=== PATIENT | female | born 1935 | race Caucasian/White ===

== ENCOUNTER → 2023-02-21 | Outpatient (CLI) | payer MEDICARE, BC ==
--- NOTE | 2023-02-21 14:48 | MM ---
Reason for Exam: Clinical finding. Baseline mammogram. Indicated Problems: Lump or thickening of the left side (size 70) for 2 Year(s). Patient History: Menarche at age 10. First Full-Term at age 17. Postmenopausal. Prior Study Comparison: Patient's first Mammogram. Tissue Density: The breast tissue is heterogeneously dense. This may lower the sensitivity of mammography. Findings: Analyzed By CAD. Large area of heterogeneous density measuring nearly 6.5 cm craniocaudal by 4.5 cm AP by 4.3 cm wide. This is a poorly defined area of increased density with overlying palpable marker centered along the superior aspect of the breast. Some stranding is noted in the axillary region. Vascular calcifications on both sides. Overall Assessment: Incomplete: need additional imaging evaluation, BI-RAD 0 Management: Diagnostic Breast Ultrasound of the left breast. Electronically signed and approved by: Precoius Vega M.D. Radiologist
--- NOTE | 2023-02-21 15:21 | USB ---
Reason for Exam: Clinical finding. Patient History: Menarche at age 10. First Full-Term at age 17. Postmenopausal. Technique: Method: Whole Breast Handheld. Findings: The whole breast of the left breast, the axilla of the left breast and the retroareolar of the left breast were scanned. A complete US of all four quadrants of the breast common axilla, and retro-areolar region were reviewed. At the 12:00 position, there is a large, poorly defined heterogeneous mass with echogenic halo measuring up to 3.3 x 3.1 x 2.0 cm. Tissue sampling is recommended. At the 7:00 position, 4 cm from the nipple, there is an indeterminate heterogeneous hypoechoic lesion measuring 5 x 5 x 4 mm. Tissue sampling is recommended to exclude multicentric disease. No other solid or cystic lesion or axillary lymphadenopathy. Overall Assessment: Highly suggestive of malignancy, BI-RAD 5 Management: Ultrasound Core Biopsy of the left breast. 2 site biopsy, dominant 12:00 mass and small 5 mm indeterminate 7:00 lesion to exclude multicentric disease. No axillary lymphadenopathy identified. Results were given to the patient verbally at the time of exam. Electronically signed and approved by: Precious Vega M.D. Radiologist
== END | disposition home or self-care (01) ==
LOC: RADMAMWWP 14:20
PROVIDERS: ATTEND Family Medicine
DX: N63.20 Unspecified lump in the left breast, unspecified quadrant (principal); R92.333 Mammographic heterogeneous density, bilateral breasts; R92.1 Mammographic calcification found on diagnostic imaging of breast; Z78.0 Asymptomatic menopausal state
CPT/HCPCS: 77066; 76641; G0279; 77062

== ENCOUNTER → 2023-03-09 | Day surgery (SDC) | payer MEDICARE, BC ==
--- NOTE | 2023-03-14 13:57 | MM ---
Reason for Exam: Post Procedure Mammogram. Last screening mammogram was performed less than 1 month ago. Patient History: Menarche at age 10. First Full-Term at age 17. Postmenopausal. Prior Study Comparison: 02/21/2023 Bilateral MG 3D diag mammo w/cad [facility], [facility]. Tissue Density: Left: The breast tissue is heterogeneously dense. This may lower the sensitivity of mammography. Pathology Description: Location: 7 o'clock. Marker Left Behind. Needle Type: Celero Cores: 3 Gauge: 12 Pathology Description: Location: 12 o'clock. Marker Left Behind. Needle Type: Celero Cores: 4 Gauge: 12 The 2 masses within the left breast at 12:00 and one at 7:00 in questionwere targeted by the undersigned. Procedure was performed by the undersigned. Informed consent was obtained and all of the patients questions were answered. The standard sterile technique was utilized and appropriate local anesthesia was obtained with 1% lidocaine. Mammotome probe was advanced and multiple core samples were obtained and sent to pathology for interpretation. Microclip marker was deployed at the sites of biopsy. Post procedural mammogram demonstrates appropriate deployment of radiopaque clip markers. The patient tolerated the procedure well and left the department in stable condition. Pathology results are pending. Impression: Successful stereotactic core biopsies left breast. Pathology Results: Result: Malignant, Invasive lobular carcinoma. A. LEFT BREAST, TWELVE O'CLOCK, 7 CM FROM NIPPLE, CORE BIOPSY: Invasive lobular carcinoma, Grade 2 (See Surgical Pathology Cancer Case Summary and Comment). B. LEFT BREAST, SEVEN O'CLOCK, 4 CM FROM NIPPLE, CORE BIOPSY: Focal lobular neoplasia representing at least atypical lobular hyperplasia (ALH) with fibrocystic change (See Surgical Pathology Cancer Case Summary and Comment). Overall Assessment: Malignant Assessment: MG diagnostic mammo LT wo CAD. - Left: Known biopsy proven malignancy, BI-RAD 6. Management: Surgical Consultation of the left breast. Electronically signed and approved by: Stevo Plascencia M.D. Radiologis
== END ==
LOC: RADUSWWP 09:55
PROVIDERS: ATTEND Surgery
DX: C50.912 Malignant neoplasm of unspecified site of left female breast (principal); N60.12 Diffuse cystic mastopathy of left breast
CPT/HCPCS: 88305; 88342; 88341; 77065; 19083; 19084; A4648

== ENCOUNTER → 2023-03-16 | Outpatient (CLI) | payer MEDICARE, BC ==
[2023-03-16 09:32] VITALS: BP 164/81; PULSE 90; RESP 15; TEMP 98.1
--- NOTE | 2023-03-16 09:53 | P.GSHP ---
History of Present Illness H&P Date: 03/16/23 Chief Complaint: left breast invasive lobular cancer Judy is an 87 year old female with a diagnosis of left breast invasive lobular cancer. She is seen in consultation for Sr. Overton. She had a bilateral mammogram on 02-05-23 which resulted in further workup of the left breast. An ultrasound of the left breast revealed a 3.3 by 3.1 cm lesion. Biopsy of the lesion was (+) for invasive lobular cancer. ER+NM+Her2-G2. THei was at the 12 OClock position. The patient has felt a lump in her breast for about 1 year. It has gotten larger. It is not painful. She has not had any surgery on her breast in the past. This was her first mammogram. She is not complaining of any recent trauma or infection in the breast. She recently moved into independent living and takes care of her 65-year-old mentally impaired daughter. Caffeine: 1 cup/day nicotine: none chocolate: weekly BCP: 1 year hormones: none Family History: mother: breast cancer in her 70's daughter: breast cancer neice: 2 breast cancer Hormonal History: menarche: 10 , breast fed: yes, age at first : 17 menopause: hysterectomy 30 years ago, done for prolapse, left ovaries; menopause at 48 Surgical history: Rib resection Mohs surgery on her back and on her leg do know what kind of cancer cyst removed from face no cancer Medical history: HTN tremors anxiety high cholesterol Social History: Nicotine: Negative Alcohol: Negative Drugs: Negative - Constitutional Constitutional: Denies chills, Denies fever - EENT Eyes: denies blurred vision, denies pain Ears: bilateral: decreased hearing, deny: tinnitus Ears, nose, mouth and throat: Denies headache, Denies sore throat - Breasts Breasts: bilateral: as per HPI - Cardiovascular Cardiovascular: Denies chest pain, Denies shortness of breath - Respiratory Respiratory: Denies cough, Denies 7 - Gastrointestinal Gastrointestinal: Denies abdominal pain, Denies diarrhea, Denies nausea, Denies vomiting - Genitourinary (Female) Genitourinary: Denies dysuria, Denies hematuria - Menstruation Menstruation: Reports postmenopausal - Musculoskeletal Musculoskeletal: Denies myalgias - Integumentary Integumentary: Denies pruritus, Denies rash - Neurological Neurological: Denies numbness, Denies weakness - Psychiatric Psychiatric: Reports anxiety, Denies depression - Endocrine Endocrine: Denies fatigue, Denies weight change - Hematologic/Lymphatic Comment: take baby aspirin - Allergic/Immunologic Allergic/Immunologic: Reports as per HPI Past Medical History Past Medical History: Cancer, Hyperlipidemia, Hypertension Additional Past Medical History / Comment(s): benign tremors. Hx of skin cancer History of Any Multi-Drug Resistant Organisms: None Reported Past Surgical History: Hysterectomy Additional Past Surgical History / Comment(s): Pilar cyst removal,skin cancer removal Past Anesthesia/Blood Transfusion Reactions: Postoperative Nausea & Vomiting (PONV) Additional Past Anesthesia/Blood Transfusion Reaction / Comment(s): wakes up slow Past Psychological History: Anxiety, Depression Smoking Status: Never smoker Past Alcohol Use History: None Reported Past Drug Use History: None Reported Medications and Allergies Home Medications Medication Instructions Recorded Confirmed Type Aspirin 81 mg PO DAILY 02/22/23 03/16/23 History Sertraline [Zoloft] 25 mg PO DAILY 02/22/23 03/16/23 History Cholecalciferol [Vitamin D3 (25 25 mcg PO DAILY 03/16/23 03/16/23 History Mcg = 1000 Iu)] Losartan Potassium 100 mg PO DAILY 03/16/23 03/16/23 History Primidone 50 mg PO HS 03/16/23 03/16/23 History Simvastatin 40 mg PO DAILY 03/16/23 03/16/23 History Allergies Allergy/AdvReac Type Severity Reaction Status Date / Time codeine AdvReac Rash/Hives Verified 03/16/23 09:11 Surgical - Exam Vital Signs Temp Pulse Resp BP Pulse Ox 98.1 F 90 15 164/81 97 03/16/23 09:17 03/16/23 09:17 03/16/23 09:17 03/16/23 09:17 03/16/23 09:17 - General no distress - Eyes normal ocular movement - Neck trachea midline - Respiratory normal respiratory effort, clear to auscultation - Cardiovascular Heart Sounds: normal: S1, S2 - Abdomen Abdomen: soft, non tender, no guarding, no rigid, no rebound - Integumentary normal turgor - Neurologic no disoriented, no combative - Musculoskeletal normal gait - Psychiatric oriented to time, oriented to person, oriented to place, speech is normal, memory intact Breast Exam: BRA: 36B Inspection: Bilateral grade 3 ptosis, fullness left breast 12 o'clock position and left axilla Palpation: Right breast: Multi positional exam fibrocystic changes no discrete dominant masses or nodules of concern Right axilla: No adenopathy of concern Left breast: Multi positional exam fullness approximately 5 x 3 cm 12 o'clock position left breast, left axillary area positive mass approximately 3 x 2 cm Left axilla: Probable axillary adenopathy left axillary mass as described above Results Mammogram and ultrasound reviewed with Dr. Colvin Assessment and Plan Assessment: Impression: Left breast invasive lobular carcinoma/probable axillary involvement Plan: Discussion with patient and her family Presentation of case at tumor board Left axillary ultrasound with biopsy CC: Dr. Overton
== END ==
LOC: WWCWWP 08:53
PROVIDERS: ATTEND Surgery
DX: C50.912 Malignant neoplasm of unspecified site of left female breast (principal); E78.00 Pure hypercholesterolemia, unspecified; F41.9 Anxiety disorder, unspecified; F32.A Depression, unspecified; I10 Essential (primary) hypertension; Z85.828 Personal history of other malignant neoplasm of skin; Z86.011 Personal history of benign neoplasm of the brain; Z80.3 Family history of malignant neoplasm of breast; Z79.899 Other long term (current) drug therapy; Z17.0 Estrogen receptor positive status [ER+]; Z88.5 Allergy status to narcotic agent; Z79.82 Long term (current) use of aspirin

== ENCOUNTER → 2023-03-30 | Outpatient (CLI) | payer MEDICARE, BC ==
--- NOTE | 2023-04-01 11:18 | PE ---
EXAMINATION TYPE: PET CT fusion skull to thigh DATE OF EXAM: 03/30/2023 CLINICAL INDICATION:Female, 87 years old with history of C50.612 Breast ca; TECHNIQUE: Following the intravenous administration of 9.67 mCi of F-18 FDG, whole body images are performed from the skull base to the midthigh. Images are reviewed on the computer in the coronal, a xial, and sagittal planes. Reconstructed rotating images are created on independent workstation and reviewed on the computer. A non-contrast CT is performed in conjunction with the PET scan. Glucose level 76 mg/dL CT DLP: 307.99 mGycm, Automated exposure control for dose reduction was used. COMPARISON: CT None, PET/CT None, mammography 03/09/2023, ultrasound 03/09/2023. FINDINGS: Mediastinal SUV mean is 2.0. Hepatic parenchyma SUV mean is 2.4. SKULL BASE AND NECK: No suspicious radiotracer activity. CHEST, MEDIASTINUM, AND HILAR REGION: * Hazy soft tissue with uptake within the left breast max SUV 2.2. ABDOMEN AND PELVIS: No suspicious radiotracer activity. MUSCULOSKELETAL STRUCTURES: * Subtle uptake within the left aspect of the sternum max SUV 2.0. OTHER CT: Left thyroid nodule with peripheral calcification. Heart is mildly enlarged for size. Ather osclerosis of the arterial vasculature including the coronary arteries. Mild aortic valve leaflet jefferson cifications. Scattered colonic diverticula. High density probable gallstones in the gallbladder lumen . Pelvic floor prolapse extending below the pubococcygeal line. IMPRESSION: Subtle uptake within the left breast possibly relating to recent biopsy. There is subtle uptake withi n the sternum with mild sclerosis on CT. Early metastatic disease not entirely excluded. No evidence for FDG avid lymph nodes or other evidence of metastatic disease at this time.
== END | disposition home or self-care (01) ==
LOC: RADPETMAIN 14:24
PROVIDERS: ATTEND Surgery
DX: C50.612 Malignant neoplasm of axillary tail of left female breast (principal)
CPT/HCPCS: 78815; A9552

== ENCOUNTER → 2023-04-19 | Day surgery (SDC) | payer MEDICARE, BC | LOC: RADUSWWP 12:38 | PROVIDERS: ATTEND Surgery | DX: C50.912 Malignant neoplasm of unspecified site of left female breast (principal); Z85.3 Personal history of malignant neoplasm of breast | CPT/HCPCS: 19083; A4648; 88305; 88341; 88342 ==

== ENCOUNTER 2023-05-04 10:51 | Emergency (ER) | payer MEDICARE, BC ==
--- NOTE | 2023-05-04 11:09 | ED ---
General Adult HPI - General Chief complaint: Recheck/Abnormal Lab/Rx Stated complaint: HTN Time Seen by Provider: 05/04/23 10:55 Source: patient, EMS, RN notes reviewed, old records reviewed Mode of arrival: EMS Limitations: no limitations - History of Present Illness Initial comments: Patient is a pleasant 87-year-old female present to the emergency department with concerns for blood pressure. Patient was at her doctor's office today getting results and a breast biopsy. Patient was informed she will need further treatment. Patient admits to being upset regarding this. Blood pressure was high and patient was advised to come the emergency department. Patient states otherwise she feels fine. Patient does have history of hypertension and last took her medication last night which is normal. - Related Data Home Medications Medication Instructions Recorded Confirmed Aspirin 81 mg PO HS 02/22/23 05/04/23 Sertraline [Zoloft] 25 mg PO HS 02/22/23 05/04/23 Cholecalciferol [Vitamin D3 (25 50 mcg PO HS 03/16/23 05/04/23 Mcg = 1000 Iu)] Losartan Potassium 100 mg PO HS 03/16/23 05/04/23 Primidone 100 mg PO HS 03/16/23 05/04/23 Simvastatin 40 mg PO HS 03/16/23 05/04/23 Fritz/D3/Mag11/Zinc/Infection Preventionist/Ethan/Bor 1 tab PO HS 05/04/23 05/04/23 [Caltrate 600+D Plus Tablet] Letrozole [Femara] 2.5 mg PO DAILY 05/04/23 05/04/23 Previous Rx's Medication Instructions Recorded Azithromycin [Zithromax Z Pack] 250 mg PO DAILY #6 tab 05/04/23 Allergies Allergy/AdvReac Type Severity Reaction Status Date / Time codeine Allergy Rash/Hives Verified 05/04/23 11:51 lisinopril AdvReac Cough Verified 05/04/23 11:51 Review of Systems ROS Statement: Those systems with pertinent positive or pertinent negative responses have been documented in the HPI. ROS Other: All systems not noted in ROS Statement are negative. Constitutional: Denies: fever Eyes: Denies: eye pain ENT: Denies: ear pain Respiratory: Denies: cough Cardiovascular: Denies: chest pain Endocrine: Denies: fatigue Gastrointestinal: Denies: abdominal pain Genitourinary: Denies: urgency Psychiatric: Reports: anxiety Past Medical History Past Medical History: Cancer, Hyperlipidemia, Hypertension Additional Past Medical History / Comment(s): benign tremors. Hx of skin cancer. Left breast cancer History of Any Multi-Drug Resistant Organisms: None Reported Past Surgical History: Hysterectomy Additional Past Surgical History / Comment(s): Pilar cyst removal,skin cancer removal Past Anesthesia/Blood Transfusion Reactions: Postoperative Nausea & Vomiting (PONV) Additional Past Anesthesia/Blood Transfusion Reaction / Comment(s): wakes up slow Past Psychological History: Anxiety, Depression Smoking Status: Never smoker Past Alcohol Use History: None Reported Past Drug Use History: None Reported General Exam Limitations: no limitations General appearance: alert, in no apparent distress Head exam: Present: normocephalic Eye exam: Present: normal appearance ENT exam: Present: normal oropharynx Neck exam: Present: normal inspection Respiratory exam: Present: normal lung sounds bilaterally Cardiovascular Exam: Present: regular rate, normal rhythm GI/Abdominal exam: Present: soft. Absent: tenderness Extremities exam: Present: normal inspection Neurological exam: Present: alert, CN II-XII intact. Absent: motor sensory deficit Expanded Neurological exam: Present: protecting the airway Speech: Present: fluid speech Cranial nerves: EOM's Intact: Normal Motor strength exam: RUE: 5, LUE: 5, RLE: 5, LLE: 5 Eye Response: (4) open spontaneously Motor Response: (6) obeys commands Verbal Response: (5) oriented Psychiatric exam: Present: other (Patient does appear slightly anxious) Skin exam: Present: normal color Course Vital Signs 05/04/23 05/04/23 05/04/23 10:58 11:49 12:02 Temperature 97.9 F Pulse Rate 70 69 Respiratory 18 17 Rate Blood Pressure 204/90 184/92 194/94 O2 Sat by Pulse 95 95 Oximetry EKG Findings - EKG Results: EKG: interpreted by ERMD, sinus rhythm, normal axis, normal QRS, normal ST/T Medical Decision Making - Medical Decision Making Was pt. sent in by a medical professional or institution (, PA, D[facility] R[facility]ER, urgent care, hospital, or half-way...) When possible be specific @ -Patient was sent in by a clinic Did you speak to anyone other than the patient for history (EMS, parent, family, police, friend...)? What history was obtained from this source @ -No Did you review nursing and triage notes (agree or disagree)? Why? @ -I reviewed and agree with nursing and triage notes Were old charts reviewed (outside hosp., previous admission, EMS record, old EKG, old radiological studies, urgent care reports/EKG's, half-way records)? Report findings @ -Chart reviewed from clinic Differential Diagnosis (chest pain, altered mental status, abdominal pain women, abdominal pain men, vaginal bleeding, weakness, fever, dyspnea, syncope, headache, dizziness, GI bleed, back pain, seizure, CVA, palpatations, mental health, musculoskeletal)? @ -Differential Dizziness: Benign paroxysmal positional Vertigo, Menieres disease, otitis media, acoustic neuroma, vertebrobasilar insufficiency, cerebellar stroke, encephalitis, hypovolemic, arrhythmia, coronary artery syndrome, anemia, this is not meant to be an all-inclusive list EKG interpreted by me (3pts min.). @ -As above X-rays interpreted by me (1pt min.). @ -Chest x-ray shows right mid infiltrate CT interpreted by me (1pt min.). @ -None done U/S interpreted by me (1pt. min.). @ -None done What testing was considered but not performed or refused? (CT, X-rays, U/S, la bs)? Why? @ -None What meds were considered but not given or refused? Why? @ -None Did you discuss the management of the patient with other professionals (professionals i.e. , PA, D[facility] R[facility]ER, lab, RT, psych nurse, executive secretary social welfare, route driver, teacher, chief financial officer, catalytic case operator)? Give summary @ -Case discussed with practitioner Shayne with oncology who did review chart and is comfortable with discharge and they will follow-up. Was smoking cessation discussed for >3mins.? @ -No Was critical care preformed (if so, how long)? @ -No Were there social determinants of health that impacted care today? How? (Homelessness, low income, unemployed, alcoholism, drug addiction, transportation, low edu. Level, literacy, decrease access to med. care, shelter, rehab)? @ -No Was there de-escalation of care discussed even if they declined (Discuss DNR or withdrawal of care, Hospice)? DNR status @ -No What co-morbidities impacted this encounter? (DM, HTN, Smoking, COPD, CAD, Cancer, CVA, ARF, Chemo, Hep., AIDS, mental health diagnosis, sleep apnea, morbid obesity)? @ -Breast cancer however patient is not currently on any sort of chemotherapy Was patient admitted / discharged? Hospital course, mention meds given and route, prescriptions, significant lab abnormalities, going to OR and other pertinent info. @ -Patient presents with hypertension. Patient does have some associated anxiety. Blood pressure is stable for discharge however still somewhat elevated. Patient will be provided medications and recommended close follow-up. Patient will be covered with antibiotics for possible pneumonia on chest x-ray. Oncology will follow-up with this for further investigation as well. Undiagnosed new problem with uncertain prognosis? @ -No Drug Therapy requiring intensive monitoring for toxicity (Heparin, Nitro, Insulin, Cardizem)? @ -No Were any procedures done? @ -No Diagnosis/symptom? @ -Hypertension, anxiety, pneumonia Acute, or Chronic, or Acute on Chronic? @ -Acute, acute, acute Uncomplicated (without systemic symptoms) or Complicated (systemic symptoms)? @ -Default Side effects of treatment? @ -No Exacerbation, Progression, or Severe Exacerbation? @ -No Poses a threat to life or bodily function? How? (Chest pain, USA, MD, pneumonia, PE, COPD, DKA, ARF, appy, cholecystitis, CVA, Diverticulitis, Homicidal, Suicidal, threat to staff... and all critical care pts) @ -No - Lab Data Result diagrams: 05/04/23 11:05 05/04/23 11:05 Lab Results 05/04/23 05/04/23 Range/Units 11:05 11:05 WBC 6.2 (3.8-10.6) k/uL RBC 4.57 (3.80-5.40) m/uL Hgb 13.5 (11.4-16.0) gm/dL Hct 42.8 (34.0-46.0) % MCV 93.5 (80.0-100.0) fL MCH 29.6 (25.0-35.0) pg MCHC 31.6 (31.0-37.0) g/dL RDW 13.0 (11.5-15.5) % Plt Count 201 (150-450) k/uL MPV 7.2 Neutrophils % 55 % Lymphocytes % 32 % Monocytes % 6 % Eosinophils % 3 % Basophils % 1 % Neutrophils # 3.5 (1.3-7.7) k/uL Lymphocytes # 2.0 (1.0-4.8) k/uL Monocytes # 0.4 (0-1.0) k/uL Eosinophils # 0.2 (0-0.7) k/uL Basophils # 0.1 (0-0.2) k/uL Sodium 140 (137-145) mmol/L Potassium 4.2 (3.5-5.1) mmol/L Chloride 108 H (98-107) mmol/L Carbon Dioxide 26 (22-30) mmol/L Anion Gap 6 mmol/L BUN 23 H (7-17) mg/dL Creatinine 0.76 (0.52-1.04) mg/dL Est GFR (CKD-EPI)AfAm 81 (>60 ml/min/1.73 sqM) Est GFR (CKD-EPI)NonAf 70 (>60 ml/min/1.73 sqM) Glucose 92 (74-99) mg/dL Calcium 9.3 (8.4-10.2) mg/dL Total Bilirubin 0.7 (0.2-1.3) mg/dL AST 26 (14-36) U/L ALT 19 (4-34) U/L Alkaline Phosphatase 103 (38-126) U/L Total Protein 7.1 (6.3-8.2) g/dL Albumin 4.1 (3.5-5.0) g/dL Disposition Clinical Impression: Hypertension, Pneumonia Disposition: HOME SELF-CARE Condition: Stable Instructions (If sedation given, give patient instructions): Bacterial Pneumon ia (ED), Hypertension (ED) Additional Instructions: Please do follow-up with primary care physician in the next 1 or 2 days for recheck. Please also follow-up with Dr. Andrews and oncology department in the next day or 2 for recheck. Return for fevers, difficulty breathing, increased blood pressure, worsening or changing symptoms or other concerns. Prescription sent to pharmacy. Prescriptions: Azithromycin [Zithromax Z Pack] 250 mg PO DAILY #6 tab Is patient prescribed a controlled substance at d/c from ED?: No Referrals: Aj Overton DO [Primary Care Provider] - 1-2 days Time of Disposition: 13:00
[2023-05-04 11:27] LABS: Basophils # (A) 0.1 k/uL (0-0.2); Basophils % (A) 1 %; Eosinophils # (A) 0.2 k/uL (0-0.7); Eosinophils % (A) 3 %; HCT 42.8 % (34.0-46.0); HGB 13.5 gm/dL (11.4-16.0); Lymphocytes % (A) 32 %; MCH 29.6 pg (25.0-35.0); MCHC 31.6 g/dL (31.0-37.0); MCV 93.5 fL (80.0-100.0); Mean Platelet Volume 7.2; Monocytes # (A) 0.4 k/uL (0-1.0); Monocytes % (A) 6 %; Neutrophils # (A) 3.5 k/uL (1.3-7.7); Neutrophils % (A) 55 %; Platelet Count 201 k/uL (150-450); RBC 4.57 m/uL (3.80-5.40); WBC 6.2 k/uL (3.8-10.6)
[2023-05-04 11:37] VITALS: TEMP 97.9
[2023-05-04 11:37] LABS: ALT 19 U/L (4-34); AST 26 U/L (14-36); African American GFR (CKD) 81 (>60 ml/min/1.73 sqM); Albumin 4.1 g/dL (3.5-5.0); Alkaline Phosphatase 103 U/L (38-126); Anion Gap 6 mmol/L; Blood Urea Nitrogen 23 mg/dL (7-17); Calcium 9.3 mg/dL (8.4-10.2); Carbon Dioxide 26 mmol/L (22-30); Chloride 108 mmol/L (98-107); Glucose 92 mg/dL (74-99); Non-African American GFR(CKD) 70 (>60 ml/min/1.73 sqM); Potassium 4.2 mmol/L (3.5-5.1); Sodium 140 mmol/L (137-145); Total Bilirubin 0.7 mg/dL (0.2-1.3); Total Protein 7.1 g/dL (6.3-8.2)
--- NOTE | 2023-05-04 12:09 | XR ---
EXAMINATION TYPE: XR chest 2V DATE OF EXAM: 05/04/2023 COMPARISON: None INDICATION: Weakness TECHNIQUE: Frontal and lateral views of the chest are obtained. FINDINGS: The heart size is normal. The pulmonary vasculature is normal. Mild right lung infiltrate is present. This may be some posterior on the lateral projection. Follow-u p to clearing is recommended. Underlying mass is not excluded.. IMPRESSION: 1. Right posterior mid lung opacity. Correlate for atelectasis or pneumonia. Underlying mass is not e xcluded. Follow-up is recommended.
[2023-05-04 12:15] VITALS: PULSE 69; RESP 17
[2023-05-04 12:53] VITALS: BP 194/94
[2023-05-04] MEDS: AZITHROMYCIN 500 MG TAB PO STA (13:04)
[2023-05-04] MEDS: ALPRAZolam 0.25 MG TAB PO STA (13:05)
[2023-05-04] MEDS: amLODIPine 5 MG TAB PO STA (13:05)
== END 2023-05-04 13:17 | disposition home or self-care (01) ==
LOC: EC 10:51
DX: I10 Essential (primary) hypertension (principal); J18.9 Pneumonia, unspecified organism; F41.9 Anxiety disorder, unspecified; Z79.899 Other long term (current) drug therapy; Z88.8 Allergy status to other drugs, medicaments and biological substances; Z85.3 Personal history of malignant neoplasm of breast
CPT/HCPCS: 36415; 71046; 80053; 85025; 93005; 99285

== ENCOUNTER → 2023-05-04 | Outpatient (CLI) | payer MEDICARE, BC ==
--- NOTE | 2023-05-04 08:42 | P.PN ---
Subjective Progress Note Date: 05/04/23 Principal diagnosis: invasive lobular cancer Case presented at tumor board on 04-03-2023. PET scan was performed which revealed subtle uptake in the sternum and in the left breast. There was some concern on her visit that she had some axillary adenopathy which was not well-demonstrated on the PET scan. Her case was discussed personally with Dr. Andrews and it was felt that an ultrasound-guided core biopsy was still recommended. I have called the patient's daughter and discussed the care with the patient's daughter. She is going to receive neoadjuvant hormone therapy. She is going to receive a left axillary ultrasound-guided core biopsy as well. She will follow-up here in 3 to 4 months, or sooner if she has failure to respond to the hormone therapy. Addendum entered and electronically signed by Claudine Caballero MD 03/16/23 10:23: appointment with medical oncology. Addendum entered and electronically signed by Claudine Caballero MD 03/16/23 10:21: 1. PET CT 2. presentation at tumor board 3. ultrasound left axilla with biopsy 4. follow up in 3 weeks Patient seen with daughter and son. We have discussed the patient's tumor staging. We have discussed different surgical options. At this time we are going to consider neoadjuvant treatment depending on results of PET/CT and ultrasound of the left axilla with biopsy. We would most likely recommend a left mastectomy with possible axillary node dissection at this time. Original Note: History of Present Illness H&P Date: 03/16/23 Chief Complaint: left breast invasive lobular cancer Judy is an 87 year old female with a diagnosis of left breast invasive lobular cancer. She is seen in consultation for Sr. Overton. She had a bilateral mammogram on 02-05-23 which resulted in further workup of the left breast. An ultrasound of the left breast revealed a 3.3 by 3.1 cm lesion. Biopsy of the lesion was (+) for invasive lobular cancer. ER+TX+Her2-G2. This was at the 12 OClock position. The patient has felt a lump in her breast for about 1 year. It has gotten larger. It is not painful. She has not had any surgery on her breast in the past. This was her first mammogram. She is not complaining of any recent trauma or infection in the breast. 3-29-24 Case presented at tumor board on 04-03-2023. PET scan was performed which revealed subtle uptake in the sternum and in the left breast. There was some concern on her visit that she had some axillary adenopathy which was not well- demonstrated on the PET scan. Her case was discussed personally with Dr. Andrews and it was felt that an ultrasound-guided core biopsy was still recommended. I have called the patient's daughter and discussed the care with the patient's daughter. She is going to receive neoadjuvant hormone therapy. She is going to receive a left axillary ultrasound-guided core biopsy as well. She will follow- up here in 3 to 4 months, or sooner if she has failure to respond to the hormone therapy. appointment with medical oncology 04-17-23 note reviewed; patient started on letrazole and tolerating without difficulty left axilary ultrasound guided biopsy (+) for invasive lobular cancer PET CT as per Nohemi Andrews no convincing evidence of mets She recently moved into independent living and was taking care of her 65-year-old mentally impaired daughter; recently her daughter moved into a penitentiary. The patient lives in a senior complex at this time. Caffeine: 1 cup/day nicotine: none chocolate: weekly BCP: 1 year hormones: none Family History: mother: breast cancer in her 70's daughter: breast cancer neice: 2 breast cancer Hormonal History: menarche: 10 , breast fed: yes, age at first : 17 menopause: hysterectomy 30 years ago, done for prolapse, left ovaries; menopause at 48 Surgical history: Rib resection Mohs surgery on her back and on her leg do know what kind of cancer cyst removed from face no cancer Medical history: HTN tremors anxiety high cholesterol Social History: Nicotine: Negative Alcohol: Negative Drugs: Negative - Constitutional Constitutional: Denies chills, Denies fever - EENT Eyes: denies blurred vision, denies pain Ears: bilateral: decreased hearing, deny: tinnitus Ears, nose, mouth and throat: Denies headache, Denies sore throat - Breasts Breasts: bilateral: as per HPI - Cardiovascular Cardiovascular: Denies chest pain, Denies shortness of breath - Respiratory Respiratory: Denies cough, Denies 7 - Gastrointestinal Gastrointestinal: Denies abdominal pain, Denies diarrhea, Denies nausea, Denies vomiting - Genitourinary (Female) Genitourinary: Denies dysuria, Denies hematuria - Menstruation Menstruation: Reports postmenopausal - Musculoskeletal Musculoskeletal: Denies myalgias - Integumentary Integumentary: Denies pruritus, Denies rash - Neurological Neurological: Denies numbness, Denies weakness - Psychiatric Psychiatric: Reports anxiety, Denies depression - Endocrine Endocrine: Denies fatigue, Denies weight change - Hematologic/Lymphatic Comment: take baby aspirin - Allergic/Immunologic Allergic/Immunologic: Reports as per HPI Past Medical History Past Medical History: Cancer, Hyperlipidemia, Hypertension Additional Past Medical History / Comment(s): benign tremors. Hx of skin cancer History of Any Multi-Drug Resistant Organisms: None Reported Past Surgical History: Hysterectomy Additional Past Surgical History / Comment(s): Pilar cyst removal,skin cancer removal Past Anesthesia/Blood Transfusion Reactions: Postoperative Nausea & Vomiting (PONV) Additional Past Anesthesia/Blood Transfusion Reaction / Comment(s): wakes up slow Past Psychological History: Anxiety, Depression Smoking Status: Never smoker Past Alcohol Use History: None Reported Past Drug Use History: None Reported Medications and Allergies Home Medications Medication Instructions Recorded Confirmed Type Aspirin 81 mg PO DAILY 02/22/23 03/16/23 History Sertraline [Zoloft] 25 mg PO DAILY 02/22/23 03/16/23 History Cholecalciferol [Vitamin D3 (25 25 mcg PO DAILY 03/16/23 03/16/23 History Mcg = 1000 Iu)] Losartan Potassium 100 mg PO DAILY 03/16/23 03/16/23 History Primidone 50 mg PO HS 03/16/23 03/16/23 History Simvastatin 40 mg PO DAILY 03/16/23 03/16/23 History Allergies Allergy/AdvReac Type Severity Reaction Status Date / Time codeine AdvReac Rash/Hives Verified 03/16/23 09:11 Objective - Constitutional General appearance: Present: cooperative - EENT Eyes: Present: EOMI ENT: Present: hearing grossly normal - Neck Neck: Present: normal ROM - Respiratory Respiratory: bilateral: CTA - Cardiovascular Heart sounds: normal: S1, S2 - Integumentary Integumentary: Present: normal turgor - Psychiatric Psychiatric: Present: A&O x's 3, appropriate affect, intact judgment & insight - Additional findings Additional findings: Breast Exam: BRA: 36B Inspection: Bilateral grade 3 ptosis, fullness left breast 12 o'clock position and left axilla Palpation: Right breast: Multi positional exam fibrocystic changes no discrete dominant masses or nodules of concern Right axilla: No adenopathy of concern Left breast: Multi positional exam fullness approximately 5 x 3 cm 12 o'clock position left breast, left axillary area positive mass approximately 3 x 2 cm Left axilla: Probable axillary adenopathy left axillary mass as described above Assessment and Plan Assessment: Impression: Left breast invasive lobular carcinoma/ (+) axillary involvement, no definite mets Plan: Hormone therapy Follow-up in 2 months Patient to follow-up sooner any questions or concerns Patient is seen today in conjunction with her daughter. CC: Dr. Overton
[2023-05-04 09:42] VITALS: BP 188/87; PULSE 76; RESP 15; TEMP 97.6
== END ==
LOC: WWCWWP 08:04
PROVIDERS: ATTEND Surgery
DX: C50.912 Malignant neoplasm of unspecified site of left female breast (principal); N65.1 Disproportion of reconstructed breast; L98.8 Other specified disorders of the skin and subcutaneous tissue; Z80.3 Family history of malignant neoplasm of breast; Z17.0 Estrogen receptor positive status [ER+]; Z88.5 Allergy status to narcotic agent; Z88.8 Allergy status to other drugs, medicaments and biological substances

== ENCOUNTER → 2023-06-01 | Outpatient (CLI) | payer MEDICARE, BC ==
--- NOTE | 2023-06-07 11:57 | BD ---
EXAMINATION TYPE: Axial Bone Density DATE OF EXAM: 06/01/2023 CLINICAL HISTORY: 87 years old Female. ICD-10 CODE: C50.212 BREAST CANCER Height: Weight: FRAX RISK QUESTIONS: History of Fracture in Adulthood: yes 3. Menopause before 45: no at 48 RISK FACTORS HISTORY OF: hx of many fractures, both arms, both legs, spinal and rib fxs. left breast cancer, History of Wrist Fracture: yes, both in the past MEDICATIONS: vit d3 and calcium, chemo, and anastrozole, bp meds, cholesterol, tremors, anti-seizure meds EXAM MEASUREMENTS: Bone mineral densitometry was performed using the [employer] System. Bone mineral density as measured about the Lumbar spine is: ----- L1-L4(G/cm2): 1.142 T Score Values are as follows: ----- L1: 1.6 ----- L2: -0.6 ----- L3: -1.0 ----- L4: -0.6 ----- L1-L4: -0.3 Z Score Values are as follows: ----- L1: 3.8 ----- L2: 1.6 ----- L3: 1.2 ----- L4: 1.6 ----- L1-L4: 1.9 Bone mineral density is her first bone density at [facility]. Bone mineral density about the R hip (g/cm2): 0.718 Bone mineral density about the L hip (g/cm2): 0.699 T Score values are as follows: -----R Neck: -2.3 -----L Neck: -2.5 -----R Total: -2.3 -----L Total: -2.4 Z Score values are as follows: -----R Neck: 0.4 -----L Neck: 0.2 -----R Total: 0.4 -----L Total: 0.2 Bone mineral density is the first study at [facility]. FRAX%s: The graph provided illustrates a 21.5% chance for a major osteoporotic fx and a 7.2% chance f or the hips probability for fx in 10 years time. IMPRESSION: Osteoporosis (T Score less than -2.5). There is increased fracture risk and therapy is usually indicated based on age. Re-Screen 1-2 years. NOTE: T-SCORE=SD OF THE YOUNG ADULT MEAN.
== END | disposition home or self-care (01) ==
LOC: RADBDWWP 09:07
PROVIDERS: ATTEND Internal Medicine Hematology & Oncology
DX: C50.212 Malignant neoplasm of upper-inner quadrant of left female breast (principal); M85.89 Other specified disorders of bone density and structure, multiple sites; F32.A Depression, unspecified; I10 Essential (primary) hypertension; Z17.0 Estrogen receptor positive status [ER+]; Z78.0 Asymptomatic menopausal state
CPT/HCPCS: 77080

== ENCOUNTER → 2023-06-01 | Outpatient (CLI) | payer MEDICARE, BC ==
--- NOTE | 2023-06-01 10:15 | P.PN ---
Subjective Progress Note Date: 06/01/23 History of Present Illness H&P Date: 03/16/23 Chief Complaint: left breast invasive lobular cancer Judy is an 87 year old female with a diagnosis of left breast invasive lobular cancer. She is seen in consultation for Sr. Overton. She had a bilateral mammogram on 02-05-23 which resulted in further workup of the left breast. An ultrasound of the left breast revealed a 3.3 by 3.1 cm lesion. Biopsy of the lesion was (+) for invasive lobular cancer. ER+MT+Her2-G2. This was at the 12 OClock position. The patient has felt a lump in her breast for about 1 year. It has gotten larger. It is not painful. She has not had any surgery on her breast in the past. This was her first mammogram. She is not complaining of any recent trauma or infection in the breast. 05-04-23 Case presented at tumor board on 04-03-2023. PET scan was performed which revealed subtle uptake in the sternum and in the left breast. There was some concern on her visit that she had some axillary adenopathy which was not well- demonstrated on the PET scan. Her case was discussed personally with Dr. Andrews and it was felt that an ultrasound-guided core biopsy was still recommended. I have called the patient's daughter and discussed the care with the patient's daughter. She is going to receive neoadjuvant hormone therapy. She is going to receive a left axillary ultrasound-guided core biopsy as well. She will follow- up here in 3 to 4 months, or sooner if she has failure to respond to the hormone therapy. appointment with medical oncology 04-17-23 note reviewed; patient started on letrazole and tolerating without difficulty left axilary ultrasound guided biopsy (+) for invasive lobular cancer PET CT as per Nohemi Andrews no convincing evidence of mets She recently moved into independent living and was taking care of her 65-year-old mentally impaired daughter; recently her daughter moved into a assisted. The patient lives in a senior complex at this time. vasive lobular cancer Case presented at tumor board on 04-03-2023. PET scan was performed which revealed subtle uptake in the sternum and in the left breast. There was some concern on her visit that she had some axillary adenopathy which was not well- demonstrated on the PET scan. Her case was discussed personally with Dr. Andrews and it was felt that an ultrasound-guided core biopsy was still recommended. I have called the patient's daughter and discussed the care with the patient's daughter. She is going to receive neoadjuvant hormone therapy. She is going to receive a left axillary ultrasound-guided core biopsy as well. She will follow- up here in 3 to 4 months, or sooner if she has failure to respond to the hormone therapy appointment with medical oncology. Patient seen with daughter and son. We have discussed the patient's tumor [place]. We have discussed different surgical options. At this time we are going to consider neoadjuvant treatment depending on results of PET/CT and ultrasound of the left axilla with biopsy. We would most likely recommend a left mastectomy with possible axillary node dissection at this time. 05-31-24 left axillary core biopsy invasive lobular cancer done on 04-19-23 She has been receiving hormone therapy, letrazole the lesion has not increased in size, she is following with medical oncology on June 17; they have decreased slightly in size She is doing well at this time. Her daughter has moved into a assisted. The patient has moved into an independent living facility. Caffeine: 1 cup/day nicotine: none chocolate: weekly BCP: 1 year hormones: none Family History: mother: breast cancer in her 70's daughter: breast cancer neice: 2 breast cancer Hormonal History: menarche: 10 , breast fed: yes, age at first : 17 menopause: hysterectomy 30 years ago, done for prolapse, left ovaries; menopause at 48 Surgical history: Rib resection Mohs surgery on her back and on her leg do know what kind of cancer cyst removed from face no cancer Medical history: HTN tremors anxiety high cholesterol Social History: Nicotine: Negative Alcohol: Negative Drugs: Negative - Constitutional Constitutional: Denies chills, Denies fever - EENT Eyes: denies blurred vision, denies pain Ears: bilateral: decreased hearing, deny: tinnitus Ears, nose, mouth and throat: Denies headache, Denies sore throat - Breasts Breasts: bilateral: as per HPI - Cardiovascular Cardiovascular: Denies chest pain, Denies shortness of breath - Respiratory Respiratory: Denies cough - Gastrointestinal Gastrointestinal: Denies abdominal pain, Denies diarrhea, Denies nausea, Denies vomiting - Genitourinary (Female) Genitourinary: Denies dysuria, Denies hematuria - Menstruation Menstruation: Reports postmenopausal - Musculoskeletal Musculoskeletal: Denies myalgias - Integumentary Integumentary: Denies pruritus, Denies rash - Neurological Neurological: Denies numbness, Denies weakness - Psychiatric Psychiatric: Reports anxiety, Denies depression - Endocrine Endocrine: Denies fatigue, Denies weight change - Hematologic/Lymphatic Comment: take baby aspirin - Allergic/Immunologic Allergic/Immunologic: Reports as per HPI Past Medical History Past Medical History: Cancer, Hyperlipidemia, Hypertension Additional Past Medical History / Comment(s): benign tremors. Hx of skin cancer History of Any Multi-Drug Resistant Organisms: None Reported Past Surgical History: Hysterectomy Additional Past Surgical History / Comment(s): Pilar cyst removal,skin cancer removal Past Anesthesia/Blood Transfusion Reactions: Postoperative Nausea & Vomiting (PONV) Additional Past Anesthesia/Blood Transfusion Reaction / Comment(s): wakes up slow Past Psychological History: Anxiety, Depression Smoking Status: Never smoker Past Alcohol Use History: None Reported Past Drug Use History: None Reported Medications and Allergies Home Medications Medication Instructions Recorded Confirmed Type Aspirin 81 mg PO DAILY 02/22/23 03/16/23 History Sertraline [Zoloft] 25 mg PO DAILY 02/22/23 03/16/23 History Cholecalciferol [Vitamin D3 (25 25 mcg PO DAILY 03/16/23 03/16/23 History Mcg = 1000 Iu)] Losartan Potassium 100 mg PO DAILY 03/16/23 03/16/23 History Primidone 50 mg PO HS 03/16/23 03/16/23 History Simvastatin 40 mg PO DAILY 03/16/23 03/16/23 History Allergies Allergy/AdvReac Type Severity Reaction Status Date / Time codeine AdvReac Rash/Hives Verified 03/16/23 09:11 Objective - Vital Signs Vital signs: Vital Signs Temp 97.8 F 06/01/23 09:57 Pulse 79 06/01/23 09:57 Resp 17 06/01/23 09:57 BP 169/71 06/01/23 09:57 Pulse Ox 96 06/01/23 09:57 FiO2 Intake & Output 05/31/23 06/01/23 06/01/23 18:59 06:59 18:59 Weight 58.967 kg - Constitutional General appearance: Present: cooperative - EENT ENT: Present: hearing grossly normal - Neck Neck: Present: normal ROM - Respiratory Respiratory: bilateral: CTA - Cardiovascular Heart sounds: normal: S1, S2 - Integumentary Integumentary: Present: normal turgor - Psychiatric Psychiatric: Present: A&O x's 3, appropriate affect, intact judgment & insight - Additional findings Additional findings: Breast Exam: BRA: 36B Inspection: Bilateral grade 3 ptosis, fullness left breast 12 o'clock position and left axilla Palpation: Right breast: Multi positional exam fibrocystic changes no discrete dominant masses or nodules of concern Right axilla: No adenopathy of concern Left breast: Multi positional exam fullness approximately 5 x 3 cm 12 o'clock position left breast, left axillary area positive mass approximately 3 x 2 cm Left axilla: Probable axillary adenopathy left axillary mass as described above Assessment and Plan Assessment: Impression: Left breast invasive lobular carcinoma/ (+) axillary involvement, no definite mets Presently on letrozole Plan: Hormone therapy Follow-up in 2 months Patient to follow-up sooner any questions or concerns Patient is seen today in conjunction with her daughter. CC: Dr. Overton
[2023-06-01 10:26] VITALS: BP 169/71; PULSE 79; RESP 17; TEMP 97.8
== END ==
LOC: WWCWWP 09:09
PROVIDERS: ATTEND Surgery
DX: R92.8 Other abnormal and inconclusive findings on diagnostic imaging of breast (principal); C50.912 Malignant neoplasm of unspecified site of left female breast; R59.0 Localized enlarged lymph nodes; Z17.0 Estrogen receptor positive status [ER+]; Z88.5 Allergy status to narcotic agent; Z88.8 Allergy status to other drugs, medicaments and biological substances; Z80.3 Family history of malignant neoplasm of breast

== ENCOUNTER → 2023-08-02 | Outpatient (CLI) | payer MEDICARE, BC ==
[2023-08-02 11:53] VITALS: BP 174/83; PULSE 80; RESP 17; TEMP 97.9
--- NOTE | 2023-08-02 12:17 | P.PN ---
Subjective Progress Note Date: 08/02/23 Principal diagnosis: left breast invasive lobular cancer 03/16/23 Chief Complaint: left breast invasive lobular cancer Judy is an 87 year old female with a diagnosis of left breast invasive lobular cancer. She is seen in consultation for Sr. Overton. She had a bilateral mammogram on 02-05-23 which resulted in further workup of the left breast. An ultrasound of the left breast revealed a 3.3 by 3.1 cm lesion. Biopsy of the lesion was (+) for invasive lobular cancer. ER+SC+Her2-G2. This was at the 12 OClock position. The patient has felt a lump in her breast for about 1 year. It has gotten larger. It is not painful. She has not had any surg nehal on her breast in the past. This was her first mammogram. She is not complaining of any recent trauma or infection in the breast. 05-04-23 Case presented at tumor board on 04-03-2023. PET scan was performed which revealed subtle uptake in the sternum and in the left breast. There was some concern on her visit that she had some axillary adenopathy which was not well- demonstrated on the PET scan. Her case was discussed personally with Dr. Andrews and it was felt that an ultrasound-guided core biopsy was still recommended. I have called the patient's daughter and discussed the care with the patient's daughter. She is going to receive neoadjuvant hormone therapy. She is going to receive a left axillary ultrasound-guided core biopsy as well. She will follow- up here in 3 to 4 months, or sooner if she has failure to respond to the hormone therapy. appointment with medical oncology 04-17-23 note reviewed; patient started on letrazole and tolerating without difficulty left axilary ultrasound guided biopsy (+) for invasive lobular cancer PET CT as per Nohemi Andrews no convincing evidence of mets She recently moved into independent living and was taking care of her 65-year-old mentally impaired daughter; recently her daughter moved into a alf. The patient lives in a senior complex at this time. vasive lobular cancer Case presented at tumor board on 04-03-2023. PET scan was performed which revealed subtle uptake in the sternum and in the left breast. There was some concern on her visit that she had some axillary adenopathy which was not well- demonstrated on the PET scan. Her case was discussed personally with Dr. Andrews and it was felt that an ultrasound-guided core biopsy was still recommended. I have called the patient's daughter and discussed the care with the patient's daughter. She is going to receive neoadjuvant hormone therapy. She is going to receive a left axillary ultrasound-guided core biopsy as well. She will follow- up here in 3 to 4 months, or sooner if she has failure to respond to the hormone therapy appointment with medical oncology. Patient seen with daughter and son. We have discussed the patient's tumor staging. We have discussed different surgical options. At this time we are going to consider neoadjuvant treatment depending on results of PET/CT and ultrasound of the left axilla with biopsy. We would most likely recommend a left mastectomy with possible axillary node dissection at this time. 05-31-24 left axillary core biopsy invasive lobular cancer done on 04-19-23 She has been receiving hormone therapy, letrazole the lesion has not increased in size, she is following with medical oncology on June 17; they have decreased slightly in size She is doing well at this time. Her daughter has moved into a alf. The patient has moved into an independent living facility. 08-02-23 note 06-18-23 medical oncology reviewed continue letrazole for an invasive lobular cancer left breast; she is not complaining of any changes in her breast and no pain Her daughter is in a alf, and she is in independent living at this time. Caffeine: 1 cup/day nicotine: none chocolate: weekly BCP: 1 year hormones: none Family History: mother: breast cancer in her 70's daughter: breast cancer neice: 2 breast cancer Hormonal History: menarche: 10 , breast fed: yes, age at first : 17 menopause: hysterectomy 30 years ago, done for prolapse, left ovaries; menopause at 48 Surgical history: Rib resection Mohs surgery on her back and on her leg do know what kind of cancer cyst removed from face no cancer Medical history: HTN tremors anxiety high cholesterol Social History: Nicotine: Negative Alcohol: Negative Drugs: Negative - Constitutional Constitutional: Denies chills, Denies fever - EENT Eyes: denies blurred vision, denies pain Ears: bilateral: decreased hearing, deny: tinnitus Ears, nose, mouth and throat: Denies headache, Denies sore throat - Breasts Breasts: bilateral: as per HPI - Cardiovascular Cardiovascular: Denies chest pain, Denies shortness of breath - Respiratory Respiratory: Denies cough - Gastrointestinal Gastrointestinal: Denies abdominal pain, Denies diarrhea, Denies nausea, Denies vomiting - Genitourinary (Female) Genitourinary: Denies dysuria, Denies hematuria - Menstruation Menstruation: Reports postmenopausal - Musculoskeletal Musculoskeletal: Denies myalgias - Integumentary Integumentary: Denies pruritus, Denies rash - Neurological Neurological: Denies numbness, Denies weakness - Psychiatric Psychiatric: Reports anxiety, Denies depression - Endocrine Endocrine: Denies fatigue, Denies weight change - Hematologic/Lymphatic Comment: take baby aspirin - Allergic/Immunologic Allergic/Immunologic: Reports as per HPI Past Medical History Past Medical History: Cancer, Hyperlipidemia, Hypertension Additional Past Medical History / Comment(s): benign tremors. Hx of skin cancer History of Any Multi-Drug Resistant Organisms: None Reported Past Surgical History: Hysterectomy Additional Past Surgical History / Comment(s): Pilar cyst removal,skin cancer removal Past Anesthesia/Blood Transfusion Reactions: Postoperative Nausea & Vomiting (PONV) Additional Past Anesthesia/Blood Transfusion Reaction / Comment(s): wakes up slow Past Psychological History: Anxiety, Depression Smoking Status: Never smoker Past Alcohol Use History: None Reported Past Drug Use History: None Reported Medications and Allergies Home Medications Medication Instructions Recorded Confirmed Type Aspirin 81 mg PO DAILY 02/22/23 03/16/23 History Sertraline [Zoloft] 25 mg PO DAILY 02/22/23 03/16/23 History Cholecalciferol [Vitamin D3 (25 25 mcg PO DAILY 03/16/23 03/16/23 History Mcg = 1000 Iu)] Losartan Potassium 100 mg PO DAILY 03/16/23 03/16/23 History Primidone 50 mg PO HS 03/16/23 03/16/23 History Simvastatin 40 mg PO DAILY 03/16/23 03/16/23 History Allergies Allergy/AdvReac Type Severity Reaction Status Date / Time codeine AdvReac Rash/Hives Verified 03/16/23 09:11 Objective - Vital Signs Vital signs: Vital Signs Temp 97.9 F 08/02/23 11:51 Pulse 80 08/02/23 11:51 Resp 17 08/02/23 11:51 BP 174/83 08/02/23 11:51 Pulse Ox 96 08/02/23 11:51 FiO2 Intake & Output 08/01/23 08/02/23 08/02/23 18:59 06:59 18:59 Weight 58.967 kg - Constitutional General appearance: Present: cooperative - EENT Eyes: Present: EOMI ENT: Present: hearing grossly normal - Neck Neck: Present: normal ROM - Respiratory Respiratory: bilateral: CTA - Cardiovascular Rhythm: regular Heart sounds: normal: S1, S2 - Integumentary Integumentary: Present: normal turgor - Musculoskeletal Musculoskeletal: Present: gait normal - Psychiatric Psychiatric: Present: appropriate affect, intact judgment & insight - Additional findings Additional findings: Breast Exam: BRA: 36B Inspection: Bilateral grade 3 ptosis, fullness left breast 12 o'clock position and left axilla Palpation: Right breast: Multi positional exam fibrocystic changes no discrete dominant masses or nodules of concern Right axilla: No adenopathy of concern Left breast: Multi positional exam fullness approximately 4 by 3 cm 12 o'clock position left breast, left axillary area positive mass approximately 3 x 2 cm not fixed Left axilla: Probable axillary adenopathy left axillary mass as described above Assessment and Plan Assessment: Impression: Left breast invasive lobular carcinoma/ (+) axillary involvement, no definite mets Presently on letrozole Responding to the letrozole Plan: Hormone therapy Follow-up in 2 months Patient to follow-up sooner any questions or concerns probably surgery in early October; needle localization left breast lumpectomy possible left breast oncoplastic tissue transfer and left axillay node dissection Patient is seen today in conjunction with her daughter. CC: Dr. Overton
== END ==
LOC: WWCWWP 10:46
PROVIDERS: ATTEND Surgery
DX: C50.912 Malignant neoplasm of unspecified site of left female breast (principal); R59.0 Localized enlarged lymph nodes; Z80.3 Family history of malignant neoplasm of breast; Z17.0 Estrogen receptor positive status [ER+]; Z88.5 Allergy status to narcotic agent; Z88.8 Allergy status to other drugs, medicaments and biological substances